=== PATIENT | female | born 1960 | race Two or more races ===

== ENCOUNTER → 2016-12-21 | Outpatient (CLI) | payer OTHER ==
--- NOTE | 2016-12-21 11:08 | US ---
EXAMINATION TYPE: US pelvic complete DATE OF EXAM: 12/21/2016 COMPARISON: NONE CLINICAL HISTORY: 56-year-old female Z01.419 Screen for gynecologic exam. Patient stated has painful intercourse and that vaginal speculum insertion was also too painful for gynecological exam; hysterec kyra and right oophorectomy in 1985. TECHNIQUE: Transabdominal (TA) and Transvaginal (TV) to better assess remaining ovary; Date of LMP: approximately 30 years ago FINDINGS: Uterus and right ovary are surgically absent. Left Ovary: 1.2 x 1.0 x 0.9 cm, within normal limits. No evident adnexal abnormality or cul-de-sac free fluid. CONTROL SYSTEM COMPUTER SCIENTIST NOTES: Patient was able to insert transvaginal US probe and able to tolerate exam. IMPRESSION: 1. Status post hysterectomy and right oophorectomy. 2. Normal appearance to the left ovary.
--- NOTE | 2016-12-21 13:39 | US ---
EXAMINATION TYPE: US thyroid st tissue head/neck DATE OF EXAM: 12/21/2016 COMPARISON: NONE CLINICAL HISTORY: 56-year-old female E03.9 hypothyroidism. Palpable noted by patient midline under ch in which enlarges occasionally and white discharge occurs. GLAND SIZE: Right Lobe: 3.2 x 1.0 x 1.0 cm Overall Parenchyma: homogenous Left Lobe: 3.4 x 1.1 x 1.0 cm Overall Parenchyma: homogeneous Isthmus Thickness: 0.2 cm NODULES RIGHT: # of nodules measured on right: 0 LEFT: # of nodules measured on left: 0 ISTHMUS: # of nodules measured in the isthmus: 0 Bilateral neck scanned: couple of lymph nodes are imaged at bilateral superomedial neck measuring up to 1.1 cm short axis. These may be reactive and are not abnormally enlarged by size criteria. Drier Attendant notes: At patient's c/o midline palpable is superficial cyst = 0.3 x 0.2 x 0.1cm. This is very small and located at the junction of the subcutaneous fat and strap musculature/platysma . There is some focal thickening of the overlying subcutaneous tissues. IMPRESSION: 1. Slightly small thyroid gland but otherwise unremarkable in appearance. 2. Some prominent but nonenlarged cervical lymph nodes are probably reactive/post inflammatory. 3. At the palpable site of patient's complaint along the upper midline, there appears to be a tiny 3 mm cyst and adjacent thickening of the subcutaneous fat. Correlate for a cutaneous lesion such as a sebaceous or epidermal inclusion cyst.
--- NOTE | 2017-01-01 10:39 | MM ---
Reason for exam: screening (asymptomatic). Last mammogram was performed 6 years and 11 months ago. History: Family history of breast cancer in mother, breast cancer in maternal grandmother, breast cancer in maternal aunt, and breast cancer in maternal cousin. Physical Findings: A clinical breast exam by your physician is recommended on an annual basis and results should be correlated with mammographic findings. MG Screening Mammo w CAD Bilateral CC and MLO view(s) were taken. XCCL view(s) were taken of the left breast. Prior study comparison: January 28, 2010, mammogram, performed at [facility]. Two focal asymmetries right upper outer quadrant middle depth. ASSESSMENT: Incomplete: need additional imaging evaluation, BI-RAD 0 RECOMMENDATION: Special view mammogram of the right breast. If lesion persists on supplemental views, image directed ultrasound is recommended. [facility] will attempt to contact patient to return for supplemental views and ultrasound if indicated.
== END | disposition home or self-care (01) ==
LOC: RADUSWWP 09:19
PROVIDERS: ATTEND Family Medicine
DX: Z12.31 Encounter for screening mammogram for malignant neoplasm of breast (principal); R10.2 Pelvic and perineal pain; N94.10 Unspecified dyspareunia; E03.9 Hypothyroidism, unspecified; Z90.710 Acquired absence of both cervix and uterus; Z90.722 Acquired absence of ovaries, bilateral
CPT/HCPCS: 76856; 76536; G0202

== ENCOUNTER → 2017-01-04 | Outpatient (CLI) | payer OTHER ==
--- NOTE | 2017-01-04 14:30 | MM ---
Reason for exam: additional evaluation requested from abnormal screening. Last mammogram was performed less than 1 month ago. History: Family history of breast cancer in mother, breast cancer in maternal grandmother, breast cancer in maternal aunt, and breast cancer in maternal cousin. Physical Findings: Nurse did not find any significant physical abnormalities on exam. MG Work Up Mamm w CAD RT ML, spot compression CC, and spot compression MLO view(s) were taken of the right breast. Prior study comparison: December 26, 2016, mammogram. December 21, 2016, bilateral MG screening mammo w CAD. There is no discrete abnormality in the upper outer quadrant of the right breast. No significant new findings when compared with previous films. These results were verbally communicated with the patient and result sheet given to the patient on 01/04/17. ASSESSMENT: Benign, BI-RAD 2 RECOMMENDATION: Return to routine screening mammogram schedule for both breasts.
== END ==
LOC: RADMAMWWP 13:31
PROVIDERS: ATTEND Family Medicine
DX: R92.8 Other abnormal and inconclusive findings on diagnostic imaging of breast (principal)

== ENCOUNTER 2017-05-07 10:05 | Day surgery (SDC) | payer OTHER ==
[2017-05-02 15:20] VITALS: BMI 19.1
[~2017-05-07 10:05] MED LIST: LACTATED RINGERS 1,000 ML IV SCH
[2017-05-07 10:38] VITALS: RESP 16; TEMP 98.8
[2017-05-07] MEDS ORDERED: LIDOCAINE 1% 20 ML VIAL (10MG/ML) FOR IV START INTRADERMA ONE (10:40)
[2017-05-07] MEDS ORDERED: PROPOFOL 10 MG/ML 20 ML VIAL IV ONE (10:57)
[2017-05-07] MEDS ORDERED: MIDAZOLAM 2 MG/2 ML VIAL ONE (10:57)
--- NOTE | 2017-05-07 11:22 | P.PCN ---
Date of Procedure: 05/07/17 Procedure(s) Performed: Procedure: Total colonoscopy. Preoperative diagnosis: Screening for neoplasia. Postoperative diagnosis: Exam within normal limits. Preparation: HalfLytely prep. Sedation: Was provided by anesthesia. Brief clinical history: The patient is a 57-year-old female who is scheduled for this evaluation for screening for neoplasia. She has no abdominal complaints, bleeding or anemia. No FH of colon cancer. This would be her first colonoscopy. Procedure: With the patient on her left lateral decubitus position and after informed consent and adequate sedation, the perianal area was inspected and it did not show any fissures or fistulas. There were no masses felt on digital rectal examination. The Olympus CFQ 160L video colonoscope was then inserted in the rectum in the usual fashion and advanced to the cecum. The mucosa appeared healthy. No polyps or tumors were seen or any obvious diverticular disease or other pathology. I retroflexed the endoscope in the rectum before the endoscope was withdrawn. The patient tolerated the procedure well. Plan: The patient was reassured. She will follow-up with you as planned and I recommended repeat exam in 10 years.
[2017-05-07 11:47] VITALS: BP 150/85; PULSE 88
== END 2017-05-07 12:13 | disposition home or self-care (01) ==
LOC: ORWHC2ENDO 10:05
DX: Z12.11 Encounter for screening for malignant neoplasm of colon (principal); I10 Essential (primary) hypertension; M19.90 Unspecified osteoarthritis, unspecified site; Z88.5 Allergy status to narcotic agent; Z88.1 Allergy status to other antibiotic agents; Z91.041 Radiographic dye allergy status; Z79.82 Long term (current) use of aspirin; Z79.891 Long term (current) use of opiate analgesic; Z79.899 Other long term (current) drug therapy
CPT/HCPCS: J2250; J2704; G0121

== ENCOUNTER → 2017-06-12 | Outpatient (CLI) | payer OTHER ==
[2017-06-12 17:57] LABS: Total Protein,CSF 35 mg/dL (12-60)
[2017-06-12 20:18] LABS: Appearance,CSF Clear; CSF Tube Number 4; Nucleated Cells, CSF 1 u/L (0-5); Red Blood Cell,CSF 0 u/L (0-10)
[2017-06-13 11:56] LABS: IgG - CSF 1.4 mg/dL (0.0 - 3.4); IgG/Albumin Index (CSF) 0.44 (0.00 - 0.77); Immunoglobulin G 840 mg/dL (700 - 1600)
== END | disposition home or self-care (01) ==
LOC: LABWHC1 08:56
PROVIDERS: ATTEND Nurse Practitioner Acute Care
DX: R90.82 White matter disease, unspecified (principal); R53.1 Weakness; R53.83 Other fatigue
CPT/HCPCS: 36415; 82040; 82042; 82784; 83873; 83916; 84157; 87476; 88108; 89050

== ENCOUNTER → 2017-10-12 | Outpatient (CLI) | payer OTHER ==
[2017-10-12 12:15] LABS: Basophils % (A) 0 %; Eosinophils # (A) 0.3 k/uL (0-0.7); Eosinophils % (A) 4 %; HCT 42.8 % (34.0-46.0); HGB 13.8 gm/dL (11.4-16.0); Lymphocytes % (A) 27 %; MCH 30.3 pg (25.0-35.0); MCHC 32.2 g/dL (31.0-37.0); Mean Platelet Volume 6.8; Monocytes # (A) 0.4 k/uL (0-1.0); Monocytes % (A) 6 %; Neutrophils # (A) 4.7 k/uL (1.3-7.7); Neutrophils % (A) 61 %; Platelet Count 235 k/uL (150-450); RBC 4.56 m/uL (3.80-5.40); RDW 12.7 % (11.5-15.5); WBC 7.7 k/uL (3.8-10.6)
[2017-10-12 12:29] LABS: ALT 28 U/L (9-52); AST 22 U/L (14-36); Albumin 4.5 g/dL (3.5-5.0); Alkaline Phosphatase 61 U/L (38-126); Anion Gap 8 mmol/L; Blood Urea Nitrogen 14 mg/dL (7-17); Calcium 9.8 mg/dL (8.4-10.2); Carbon Dioxide 30 mmol/L (22-30); Chloride 102 mmol/L (98-107); Glucose 89 mg/dL (74-99); Potassium 4.3 mmol/L (3.5-5.1); Sodium 140 mmol/L (137-145); Total Bilirubin 0.6 mg/dL (0.2-1.3)
== END | disposition home or self-care (01) ==
LOC: LABWHC1 11:42
PROVIDERS: ATTEND Nurse Practitioner Acute Care
DX: G35 Multiple sclerosis (principal); E55.9 Vitamin D deficiency, unspecified; Z51.81 Encounter for therapeutic drug level monitoring
CPT/HCPCS: 36415; 80053; 82306; 85025

== ENCOUNTER → 2017-11-01 | Outpatient (CLI) | payer OTHER ==
--- NOTE | 2017-11-01 15:39 | MR ---
EXAMINATION TYPE: MR brain wo/w con DATE OF EXAM: 11/01/2017 COMPARISON: 01/18/2017 HISTORY: Multiple sclerosis TECHNIQUE: Multiplanar, multisequence images of the brain and brainstem is performed without and with utilizing 5.5 mL intravenous Gadavist gadolinium contrast. Demyelinating disease protocol with additional Sagi ttal Flair sequence performed. FINDINGS: T2 Lesions Present : Yes Approximate Number of Lesions: Approximately 18 within the left hemisphere and approximately 21 on th e right Locations Identified : Pericallosal, periventricular, and juxtacortical Size of Reference Lesion(s): 1. 0.4 cm x 0.9 cm x 1.2 cm on axial image 17 and sagittal image 10, this is overall unchanged from the prior. 2 r 0.5 cm x 0.4 cm x 0.4 cm on axial image 21 and sagittal image 27 , this is also overall unchang ed from the prior. Enhancing Lesion(s) Present: No Change from Prior: Stable Diffusion weighted images demonstrate no evidence of a recent infarct or other diffusion abnormality. There is no worrisome extra-axial fluid collection. The ventricular system and cisternal spaces ar e normal in size and appearance. The brain volume is age appropriate. Midline structures demonstrate normal morphology. 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 The craniocervical junction appears within normal limits. Post con trast images demonstrate no abnormal enhancement. The dural venous sinuses appear patent. The visual ized sinuses are clear other than very scant mucosal thickening in the ethmoid and maxillary sinuses and the globes are intact. IMPRESSION: Stable moderate burden white matter plaques in keeping with the patient's history of multiple scleros is with no evidence of enhancing lesions to suggest acute demyelination.
== END | disposition home or self-care (01) ==
LOC: RADMRIMAIN 10:09
PROVIDERS: ATTEND Nurse Practitioner Acute Care
DX: R90.82 White matter disease, unspecified (principal); Z86.69 Personal history of other diseases of the nervous system and sense organs; Z88.1 Allergy status to other antibiotic agents; Z91.041 Radiographic dye allergy status
CPT/HCPCS: 70553; A9581

== ENCOUNTER 2017-11-07 18:34 | Emergency (ER) | payer OTHER ==
[2017-11-07] MEDS ORDERED: SODIUM CHLORIDE 0.9% 1,000 ML IV STA (19:58)
[2017-11-07] MEDS ORDERED: LORazepam 2 MG/ML INJ IV STA (19:58)
--- NOTE | 2017-11-07 20:07 | ED ---
General Adult HPI - General Chief complaint: Recheck/Abnormal Lab/Rx Stated complaint: Slurred Speech Time Seen by Provider: 11/07/17 19:50 Source: patient, RN notes reviewed, old records reviewed Mode of arrival: ambulatory Limitations: no limitations - History of Present Illness Initial comments: Patient's a 57-year-old female with significant past medical history for MS, presents emergency room today with a chief complaint of slurred speech over the last 3 weeks. She states that she has been following up with her neurologist. They state that she's had some symptoms are consistent with MS exacerbation but the slurred speech is new. She states she was advised by the neurologist to come here to the emergency room to rule out a stroke. She doesn't that she had an MRI approximately a week ago was not told of the results. Patient denies any other complaints or symptoms. She denies any new symptoms states all the symptoms have been present over the last 3 weeks. Patient denies any recent fever, chills, shortness of breath, chest pain, back pain, abdominal pain, nausea or vomiting, numbness or tingling, visual changes, or any other complaints. - Related Data Home Medications Medication Instructions Recorded Confirmed Hydrochlorothiazide 25 mg PO DAILY 05/02/17 11/07/17 Ascorbic Acid [Vitamin C] 1,000 mg PO DAILY 11/07/17 11/07/17 Cholecalciferol (Vitamin D3) 4,000 unit PO DAILY 11/07/17 11/07/17 [Vitamin D3] L.acidoph,Paracasei, B.lactis 1 cap PO DAILY 11/07/17 11/07/17 [Probiotic] Pravastatin Sodium [Pravachol] 20 mg PO HS 11/07/17 11/07/17 Pregabalin [Lyrica] 75 mg PO BID 11/07/17 11/07/17 Verapamil HCl [Calan] 120 mg PO DAILY 11/07/17 11/07/17 buPROPion SR [Wellbutrin Sr] 100 mg PO BID 11/07/17 11/07/17 Allergies Allergy/AdvReac Type Severity Reaction Status Date / Time Iodinated Contrast- Oral and Allergy Severe Anaphylaxis Verified 11/07/17 20:11 IV Dye vancomycin Allergy Severe HIVES Verified 11/07/17 20:11 cefaclor [From Ceclor] Allergy Unknown HIVES Verified 11/07/17 20:11 morphine AdvReac Unknown MADE Verified 11/07/17 20:11 MIGRAINE WORSE. gentamicin AdvReac Unknown Verified 11/07/17 20:11 Review of Systems ROS Statement: Those systems with pertinent positive or pertinent negative responses have been documented in the HPI. ROS Other: All systems not noted in ROS Statement are negative. Past Medical History Past Medical History: Hypertension, Osteoarthritis (OA) Additional Past Medical History / Comment(s): SEVERE MIGRAINES- HAS MIGRAINE PIERCING IN EAR THAT HELPS., ARTHRISTIS KNEES, STATES RECENT CT SCAN SHOWS BRAIN LESIONS., RASH ON BELLY. History of Any Multi-Drug Resistant Organisms: None Reported Past Surgical History: Appendectomy, Breast Surgery, Cholecystectomy, Hysterectomy, Orthopedic Surgery Additional Past Surgical History / Comment(s): BREAST SURGERY X3 (BX & LUMPECTOMY), LEFT SHOULDER SURGERY. Past Anesthesia/Blood Transfusion Reactions: Previous Problems w/ Anesthesia Additional Past Anesthesia/Blood Transfusion Reaction / Comment(s): MIGRAINES. SON HAS DIFFICULTY WAKING UP. Past Psychological History: Anxiety, Panic Disorder Smoking Status: Current every day smoker Past Alcohol Use History: Occasional Past Drug Use History: None Reported - Past Family History Mother Family Medical History: Cancer Additional Family Medical History / Comment(s): BREAST CANCER, CANCER IN GLAND UNDER JAW AND FACE. General Exam - General Exam Comments Initial Comments: General: The patient is awake and alert, in no distress, and does not appear acutely ill. Eye: Pupils are equal, round and reactive to light, extra-ocular movements are intact. No nystagmus. There is normal conjunctiva bilaterally. No signs of icterus. Ears, nose, mouth and throat: There are moist mucous membranes and no oral lesions. Neck: The neck is supple, there is no tenderness or JVD. Cardiovascular: There is a regular rate and rhythm. No murmur, rub or gallop is appreciated. Respiratory: Lungs are clear to auscultation, respirations are non-labored, breath sounds are equal. No wheezes, stridor, rales, or rhonchi. Gastrointestinal: Soft, non-distended, non-tender abdomen without masses or organomegaly noted. There is no rebound or guarding present. No CVA tenderness. Bowel sounds are unremarkable. Musculoskeletal: Normal ROM, no tenderness. Strength 5/5. Sensation intact. Radial pulses equal bilaterally 2+. Neurological: A&O x 3. CN II-XII intact, patient does have stuttering speech. Coordination appears grossly intact. Skin: Skin is warm and dry and no rashes or lesions are noted. Psychiatric: Cooperative, appropriate mood & affect, normal judgment. Limitations: no limitations Course Vital Signs 11/07/17 18:41 Temperature 98.2 F Pulse Rate 99 Respiratory 20 Rate Blood Pressure 155/80 O2 Sat by Pulse 98 Oximetry Medical Decision Making - Medical Decision Making Patient has been seen here the emergency room for rule out of a stroke. Patient 's CT is negative. She admits the symptoms been present for 3 weeks. Was following up with her neurologist advised come here to the emergency room before she could be started on a regimen for her MS. Patient's CT is negative for any acute abnormality. Patient also had MRI approximately one week ago which was reviewed. Patient's labs unremarkable. Patient omits no new symptoms today. Will be discharged home. - Lab Data Result diagrams: 11/07/17 20:30 11/07/17 20:30 Lab Results 11/07/17 11/07/17 11/07/17 Range/Units 20:30 20:30 20:30 WBC 9.1 (3.8-10.6) k/uL RBC 4.61 (3.80-5.40) m/uL Hgb 14.2 (11.4-16.0) gm/dL Hct 42.6 (34.0-46.0) % MCV 92.4 (80.0-100.0) fL MCH 30.9 (25.0-35.0) pg MCHC 33.4 (31.0-37.0) g/dL RDW 12.5 (11.5-15.5) % Plt Count 254 (150-450) k/uL Neutrophils % 63 % Lymphocytes % 25 % Monocytes % 7 % Eosinophils % 4 % Basophils % 1 % Neutrophils # 5.7 (1.3-7.7) k/uL Lymphocytes # 2.3 (1.0-4.8) k/uL Monocytes # 0.6 (0-1.0) k/uL Eosinophils # 0.4 (0-0.7) k/uL Basophils # 0.1 (0-0.2) k/uL Sodium 139 (137-145) mmol/L Potassium 3.8 (3.5-5.1) mmol/L Chloride 102 (98-107) mmol/L Carbon Dioxide 26 (22-30) mmol/L Anion Gap 11 mmol/L BUN 18 H (7-17) mg/dL Creatinine 0.70 (0.52-1.04) mg/dL Est GFR (CKD-EPI)AfAm >90 (>60 ml/min/1.73 sqM) Est GFR (CKD-EPI)NonAf >90 (>60 ml/min/1.73 sqM) Glucose 155 H (74-99) mg/dL Calcium 9.6 (8.4-10.2) mg/dL Total Bilirubin 0.3 (0.2-1.3) mg/dL AST 20 (14-36) U/L ALT 26 (9-52) U/L Alkaline Phosphatase 57 (38-126) U/L Total Protein 7.0 (6.3-8.2) g/dL Albumin 4.5 (3.5-5.0) g/dL Urine Color Colorless Urine Appearance Clear (Clear) Urine pH 5.0 (5.0-8.0) Ur Specific [place] 1.004 (1.001-1.035) Urine Protein Negative (Negative) Urine Glucose (UA) Negative (Negative) Urine Ketones Negative (Negative) Urine Blood Negative (Negative) Urine Nitrite Negative (Negative) Urine Bilirubin Negative (Negative) Urine Urobilinogen <2.0 (<2.0) mg/dL Ur Leukocyte Esterase Negative (Negative) Disposition Clinical Impression: Multiple sclerosis, Speech abnormality Disposition: HOME SELF-CARE Condition: Stable Instructions: Autoimmune Disease (ED) Additional Instructions: Please follow-up with neurologist over the next 1-2 days. Return here to the emergency room for any other concerns. Is patient prescribed a controlled substance at d/c from ED?: No Referrals: Carol De Luna MD [Primary Care Provider] - 1-2 days Jacqueline Natarajan MD [Family Provider] - 1-2 days Time of Disposition: 21:38
[2017-11-07] MEDS ORDERED: diphenhydrAMINE 50 MG/ML 1 ML VIAL IVP STA (20:22)
[2017-11-07] MEDS ORDERED: DIAZEPAM 5 MG TAB PO STA (20:22)
[2017-11-07 20:44] LABS: Appearance,Urine Clear (Clear); Basophils # (A) 0.1 k/uL (0-0.2); Basophils % (A) 1 %; Bilirubin,Urine Negative (Negative); Blood,Urine Negative (Negative); Color,Urine Colorless; Eosinophils # (A) 0.4 k/uL (0-0.7); Eosinophils % (A) 4 %; Glucose,Urine (UA) Negative (Negative); HCT 42.6 % (34.0-46.0); HGB 14.2 gm/dL (11.4-16.0); Ketones,Urine Negative (Negative); Leukocyte Esterase,Urine Negative (Negative); Lymphocytes # (A) 2.3 k/uL (1.0-4.8); Lymphocytes % (A) 25 %; MCH 30.9 pg (25.0-35.0); MCHC 33.4 g/dL (31.0-37.0); MCV 92.4 fL (80.0-100.0); Monocytes # (A) 0.6 k/uL (0-1.0); Monocytes % (A) 7 %; Neutrophils # (A) 5.7 k/uL (1.3-7.7); Neutrophils % (A) 63 %; Nitrite,Urine Negative (Negative); Platelet Count 254 k/uL (150-450); Protein,Urine Negative (Negative); RBC 4.61 m/uL (3.80-5.40); RDW 12.5 % (11.5-15.5); Specific Gravity,Urine 1.004 (1.001-1.035); Urobilinogen,Urine <2.0 mg/dL (<2.0); WBC 9.1 k/uL (3.8-10.6)
[2017-11-07 20:54] LABS: ALT 26 U/L (9-52); AST 20 U/L (14-36); Albumin 4.5 g/dL (3.5-5.0); Alkaline Phosphatase 57 U/L (38-126); Anion Gap 11 mmol/L; Blood Urea Nitrogen 18 mg/dL (7-17); Calcium 9.6 mg/dL (8.4-10.2); Carbon Dioxide 26 mmol/L (22-30); Chloride 102 mmol/L (98-107); Glucose 155 mg/dL (74-99); Potassium 3.8 mmol/L (3.5-5.1); Sodium 139 mmol/L (137-145); Total Bilirubin 0.3 mg/dL (0.2-1.3)
--- NOTE | 2017-11-07 21:30 | CT ---
EXAMINATION: CT brain wo con DATE AND TIME: 11/07/2017 9:18 PM CLINICAL INDICATION: Pain Headache TECHNIQUE: Standard departmental protocol. 1090.4 COMPARISON: None. FINDINGS: The calvarium is intact. There is no intracranial hemorrhage. There is no intracranial mass or mass effect. No definite new intra-axial or extra-axial attenuation defect. The paranasal sinuses, middle ear cavities, and mastoid sinus air cells are clear. The orbits are unremarkable. IMPRESSION: NO ACUTE PROCESS.
[2017-11-07 22:14] VITALS: BP 104/56; PULSE 78; RESP 18; TEMP 97.8
== END 2017-11-07 22:10 | disposition home or self-care (01) ==
LOC: EC 18:34
DX: G35 Multiple sclerosis (principal); R47.89 Other speech disturbances; I10 Essential (primary) hypertension; F17.200 Nicotine dependence, unspecified, uncomplicated; Z79.899 Other long term (current) drug therapy; Z88.1 Allergy status to other antibiotic agents; Z88.5 Allergy status to narcotic agent; Z91.041 Radiographic dye allergy status; Z86.69 Personal history of other diseases of the nervous system and sense organs; Z53.20 Procedure and treatment not carried out because of patient's decision for unspecified reasons
CPT/HCPCS: 36415; 80053; 85025; 81003; 70450; 99285; 96374; 96361; J1200

== ENCOUNTER → 2018-05-09 | Outpatient (CLI) | payer OTHER ==
--- NOTE | 2018-05-12 06:30 | MR ---
EXAMINATION TYPE: MR brain/cspine wo/w DATE OF EXAM: 05/09/2018 COMPARISON: 11/01/2017 HISTORY: 58-year-old female MS, cervicalgia TECHNIQUE: Multiplanar, multisequence images of the brain and brainstem is performed without and with IV contras t, utilizing 5.5 mL intravenous Gadavist gadolinium contrast is administered intravenously. Demyelin ating disease protocol with additional Sagittal Flair sequence performed. Subsequent multiplanar, multisequence imaging of the cervical spine without and with contrast. Demyel inating disease protocol was utilized with the addition of a sagittal PD sequence. FINDINGS: BRAIN: T2 Lesions Present : Yes Approximate Number of Lesions: 21 in the right cerebral hemisphere and 18 in the left cerebral hemisp here Locations Identified : Pericallosal, Periventricular, juxtacortical Size of Reference Lesion(s): 1. 6 x 5 mm in the subcortical right frontoparietal junction, axial image 21, not significant change d allowing for differences in measurement technique. 2 1.1 x 0.5 cm in the left periatrial white matter, not significant changed allowing for difference s in measurement technique. Enhancing Lesion(s) Present: No T1 Hypointense Lesion(s) Present: Yes Change from Prior: Stable Diffusion weighted images demonstrate no evidence of a recent infarct or other diffusion abnormality. There is no worrisome extra-axial fluid collection. The ventricular system and cisternal spaces ar e normal in size and appearance. The brain volume is age appropriate. Midline structures demonstrate normal morphology. The craniocervical junction appears within normal limits. Post contrast images demonstrate no abnormal enhancement. The dural venous sinuses appear pa tent. The visualized sinuses are clear and the globes are intact. CERVICAL SPINE: No craniocervical junction abnormality, predental space widening, or prevertebral soft tissue swellin g. There is trace grade 1 retrolisthesis at C5-C6. Mild to moderate degenerative disc disease especially from C3 through C6 levels with disc desiccation, mild disc height loss, and discussed by yenny sidhu, largest at C5-C6. Scattered ligamentum flavum thickening is also present as well as facet and uncovertebral joint degen erative change. No suspicious bone marrow replacement. At C2-C3, mild facet degenerative change without significant canal or foraminal stenosis. At C3-C4, broad-based posterior disc costophrenic complex with right-sided uncovertebral joint arthro mel and bilateral facet degenerative change. There is mild overall narrowing of the spinal canal an d mild right neuroforaminal stenosis. At C4-C5, broad-based discussed by complex with right uncovertebral joint arthropathy and bilateral f acet degenerative change. There is mild overall narrowing of spinal canal with mild right neuroforami nal stenosis. At C5-C6, broad-based disc osteophyte complex with ligamentum flavum thickening and facet/uncovertebr al joint degenerative change. There is abutment of both the dorsal and ventral cord with slight cord flattening. There is a moderate spinal canal stenosis and [id number] bilateral neuroforaminal s tenosis. At C6-C7, mild broad-based posterior discussed by complex with mild uncovertebral joint arthropathy. Additional facet degenerative change. Changes result in mild narrowing of the spinal canal without si gnificant neuroforaminal stenosis. At C7-T1, there is facet degenerative change without significant canal or foraminal stenosis. Normal course of the cervical cord and normal cord signal. Some artifacts project over the cord. Whil e the canal is tight and C5-C6 and there is slight flattening of the cord both dorsally and ventrally , no T2-weighted cord signal abnormality is seen. No abnormal enhancement within the spinal canal. COMBINED IMPRESSION: BRAIN: Unchanged moderate scattered burden of T2 bright white matter change in keeping with patient's histor y of MS. No enhancing plaques. CERVICAL SPINE: 1. Mild to moderate degenerative disc disease particularly from C3 through C6 levels along with facet /uncovertebral joint arthropathy and scattered ligamentum flavum thickening. 2. Trace grade 1 retrolisthesis at C5-C6. 3. Changes result in overall moderate narrowing of the spinal canal at C5-C6 with abutment of both th e dorsal and ventral cord and slight cord flattening. Additional levels of mild narrowing of the spin al canal without any significant cord contact. 4. No demyelinating plaques or cord edema identified. 5. Variable mild to moderate neural foraminal stenoses as outlined above.
== END | disposition home or self-care (01) ==
LOC: RADMRIMAIN 11:41
PROVIDERS: ATTEND Psychiatry & Neurology Neurology
DX: M48.02 Spinal stenosis, cervical region (principal); M50.31 Other cervical disc degeneration, high cervical region; M46.92 Unspecified inflammatory spondylopathy, cervical region; M24.28 Disorder of ligament, vertebrae; M43.12 Spondylolisthesis, cervical region; G35 Multiple sclerosis; R90.89 Other abnormal findings on diagnostic imaging of central nervous system; Z91.041 Radiographic dye allergy status; Z88.8 Allergy status to other drugs, medicaments and biological substances
CPT/HCPCS: 70553; 72156; A9585

== ENCOUNTER 2018-05-14 20:30 | Emergency (ER) | payer OTHER ==
[2018-05-14] MEDS ORDERED: SODIUM CHLORIDE 0.9% 1,000 ML IV STA (21:20)
[2018-05-14] MEDS ORDERED: MORPHINE SULFATE 4 MG/ML SYRINGE IV STA (21:20)
--- NOTE | 2018-05-14 21:30 | ED ---
General Adult HPI - General Chief complaint: Abdominal Pain Stated complaint: Abd pain Time Seen by Provider: 05/14/18 21:20 Source: patient Mode of arrival: ambulatory Limitations: no limitations - History of Present Illness Initial comments: Sweetie is a 58-year-old female with history of MS who presents the emergency department today for evaluation of epigastric and retrosternal discomfort which began around 6 PM. Pain has progressively worsened throughout the evening. Pain is not associated with nausea or vomiting. Pain radiates from the epigastrium to the back and around both flanks. She reports this pain is similar to but more severe than and more central location and previous kidney stones. Pain began before eating was not associated with postprandial episode. Patient reports she's had her gallbladder out she has no history of pancreatitis she reports that she has one drink of scotch every other Sunday she has not had any other drinks in the past week. - Related Data Home Medications Medication Instructions Recorded Confirmed Hydrochlorothiazide 25 mg PO DAILY 05/02/17 05/14/18 Cholecalciferol (Vitamin D3) 4,000 unit PO DAILY 11/07/17 05/14/18 [Vitamin D3] L.acidoph,Paracasei, B.lactis 1 cap PO DAILY 11/07/17 05/14/18 [Probiotic] Pregabalin [Lyrica] 75 mg PO BID 11/07/17 05/14/18 Verapamil HCl [Calan] 120 mg PO DAILY 11/07/17 05/14/18 buPROPion SR [Wellbutrin Sr] 100 mg PO BID 11/07/17 05/14/18 Ascorbic Acid [Vitamin C] 500 mg PO BID 05/14/18 05/14/18 Butalb/APAP/Caff 50-325-40Mg 1 tab PO Q4H PRN 05/14/18 05/14/18 [Fioricet 50-325-40] Glatiramer Acetate 40 mg SQ TUTHSA 05/14/18 05/14/18 Modafinil [Provigil] 100 mg PO WEFR PRN 05/14/18 05/14/18 [place]-3 Fatty Acids/Fish Oil [Fish 1 cap PO DAILY 05/14/18 05/14/18 Oil 1,000 mg Softgel] Pravastatin Sodium [Pravachol] 40 mg PO HS 05/14/18 05/14/18 Previous Rx's Medication Instructions Recorded Pantoprazole Sodium [Protonix] 20 mg PO BID #30 tablet. 05/15/18 Sucralfate [Carafate] 1 gm PO ACHS #1 bottle 05/15/18 Allergies Allergy/AdvReac Type Severity Reaction Status Date / Time gentamicin Allergy Severe Anaphylaxis Verified 05/14/18 21:42 Iodinated Contrast- Oral and Allergy Severe Anaphylaxis Verified 05/14/18 21:42 IV Dye vancomycin Allergy Severe HIVES Verified 05/14/18 21:42 cefaclor [From Ceclor] Allergy Unknown HIVES Verified 05/14/18 21:42 morphine AdvReac Unknown MADE Verified 05/14/18 21:42 MIGRAINE WORSE. Review of Systems ROS Statement: Those systems with pertinent positive or pertinent negative responses have been documented in the HPI. ROS Other: All systems not noted in ROS Statement are negative. Past Medical History Past Medical History: Hypertension, Osteoarthritis (OA) Additional Past Medical History / Comment(s): SEVERE MIGRAINES- HAS MIGRAINE PIERCING IN EAR THAT HELPS., ARTHRISTIS KNEES, STATES RECENT CT SCAN SHOWS BRAIN LESIONS., RASH ON BELLY. History of Any Multi-Drug Resistant Organisms: None Reported Past Surgical History: Appendectomy, Breast Surgery, Cholecystectomy, Hysterectomy, Orthopedic Surgery Additional Past Surgical History / Comment(s): BREAST SURGERY X3 (BX & LUMPECTOMY), LEFT SHOULDER SURGERY. Past Anesthesia/Blood Transfusion Reactions: Previous Problems w/ Anesthesia Additional Past Anesthesia/Blood Transfusion Reaction / Comment(s): MIGRAINES. SON HAS DIFFICULTY WAKING UP. Past Psychological History: Anxiety, Panic Disorder Smoking Status: Current every day smoker Past Alcohol Use History: Occasional Past Drug Use History: None Reported - Past Family History Mother Family Medical History: Cancer Additional Family Medical History / Comment(s): BREAST CANCER, CANCER IN GLAND UNDER JAW AND FACE. General Exam - General Exam Comments Initial Comments: Physical Exam GENERAL: Appears uncomfortable HENT: Normocephalic, Atraumatic. EYES: PERRL, EOMI PULMONARY: Tachypnea CARDIOVASCULAR: Tachycardia, regular Pulses present and equal in bilateral radial pulses, bilateral DP/PT pulses ABDOMEN: Soft and nontender with normal bowel sounds. No hepatosplenomegaly, no pulsatile masses SKIN: Skin is clear with no lesions or rashes and otherwise unremarkable. : Deferred NEUROLOGIC: Patient is alert and oriented x3. Moving all extremities spontaneously MUSCULOSKELETAL: Normal extremities with adequate strength and full range of motion. No lower extremity swelling or edema. No calf tenderness. PSYCHIATRIC: Normal psychiatric evaluation. Limitations: no limitations Limitations: no limitations Course Vital Signs 05/14/18 05/14/18 05/15/18 20:45 22:58 00:58 Temperature 98.4 F 98.7 F Pulse Rate 127 H 106 H 100 Respiratory 40 H 21 18 Rate Blood Pressure 199/110 140/78 140/69 O2 Sat by Pulse 98 98 98 Oximetry EKG Findings - EKG Comments: EKG Findings:: EKG obtained at 2114, rate is 125, rhythm is sinus tachycardia, there is normal axis, normal intervals, AK 150, cure 70, QTC is [address] elevations or depressions is no evidence of acute ischemia or infarction. Medical Decision Making - Medical Decision Making The patient was seen and evaluated history was obtained from patient and signed patient presenting with severe epigastric abdominal pain not associated with eating Labs and imaging were ordered, morphine was ordered Bedside ultrasound was performed, there are no significant abnormalities were noted, aorta appeared normal in size and contour KUB and chest x-ray revealed no free air I offered to order the patient is computed tomography scan however she states that she has severe anxiety and claustrophobia and cannot have a computed tomography scan Patient was reevaluated after IV morphine she reported significant improvement in her discomfort though she was still having mild discomfort in the epigastrium , GI cocktail was ordered Patient was advised of normal lab and x-ray findings Patient reported mild improvement with GI cocktail however reports continued pain requesting more opiates, I advised the patient at this time I would require a computed tomography scan to evaluate for any further pathology prior to giving further pain medications. Patient agreeable CT scanning only if she gets anxiolysis prior to computed tomography scan. By mouth Valium was ordered which patient tolerated well. Patient reports she has anaphylaxis to IV contrast and not willing even with premedication to receive IV contrast so dry scan was performed. Computed tomography scan revealed nonobstructive renal stones, no other acute findings were identified Results were discussed with the patient, at this time I have a history suspicion the patient's discomfort is due to gastritis and advised her she needs to follow up with GI for further evaluation. Patient reports her father had a good relationship with Dr. Emery and she plans to follow up with him. Patient will be prescribed Carafate and Protonix. Patient agreeable to plan for discharge home with outpatient GI follow-up. Return parameters were discussed patient was discharged home. When the nurse went to discharge the patient patient asked for additional IV pain medication, I offered the patient repeat dose of GI cocktail however she declined and stated she would prefer to be discharged home. - Lab Data Result diagrams: 05/14/18 21:20 05/14/18 21:20 Lab Results 05/14/18 05/14/18 05/14/18 Range/Units 21:20 21:20 21:20 WBC 12.6 H (3.8-10.6) k/uL RBC 4.45 (3.80-5.40) m/uL Hgb 13.9 (11.4-16.0) gm/dL Hct 40.7 (34.0-46.0) % MCV 91.5 (80.0-100.0) fL MCH 31.2 (25.0-35.0) pg MCHC 34.1 (31.0-37.0) g/dL RDW 12.5 (11.5-15.5) % Plt Count 314 (150-450) k/uL Neutrophils % 83 % Lymphocytes % 12 % Monocytes % 3 % Eosinophils % 0 % Basophils % 1 % Neutrophils # 10.5 H (1.3-7.7) k/uL Lymphocytes # 1.6 (1.0-4.8) k/uL Monocytes # 0.4 (0-1.0) k/uL Eosinophils # 0.0 (0-0.7) k/uL Basophils # 0.1 (0-0.2) k/uL PT (9.0-12.0) sec INR (<1.2) APTT (22.0-30.0) sec Sodium 142 (137-145) mmol/L Potassium 4.4 (3.5-5.1) mmol/L Chloride 109 H (98-107) mmol/L Carbon Dioxide 23 (22-30) mmol/L Anion Gap 10 mmol/L BUN 22 H (7-17) mg/dL Creatinine 0.61 (0.52-1.04) mg/dL Est GFR (CKD-EPI)AfAm >90 (>60 ml/min/1.73 sqM) Est GFR (CKD-EPI)NonAf >90 (>60 ml/min/1.73 sqM) Glucose 159 H (74-99) mg/dL Calcium 10.0 (8.4-10.2) mg/dL Magnesium 2.1 (1.6-2.3) mg/dL Total Bilirubin 0.4 (0.2-1.3) mg/dL AST 26 (14-36) U/L ALT 28 (9-52) U/L Alkaline Phosphatase 79 (38-126) U/L Troponin I (0.000-0.034) ng/mL NT-Pro-B Natriuret Pep 32 pg/mL Total Protein 7.1 (6.3-8.2) g/dL Albumin 4.6 (3.5-5.0) g/dL Amylase 86 (30-110) U/L Lipase 105 (23-300) U/L 05/14/18 05/14/18 Range/Units 21:20 21:20 WBC (3.8-10.6) k/uL RBC (3.80-5.40) m/uL Hgb (11.4-16.0) gm/dL Hct (34.0-46.0) % MCV (80.0-100.0) fL MCH (25.0-35.0) pg MCHC (31.0-37.0) g/dL RDW (11.5-15.5) % Plt Count (150-450) k/uL Neutrophils % % Lymphocytes % % Monocytes % % Eosinophils % % Basophils % % Neutrophils # (1.3-7.7) k/uL Lymphocytes # (1.0-4.8) k/uL Monocytes # (0-1.0) k/uL Eosinophils # (0-0.7) k/uL Basophils # (0-0.2) k/uL PT 10.5 (9.0-12.0) sec INR 1.0 (<1.2) APTT 23.0 (22.0-30.0) sec Sodium (137-145) mmol/L Potassium (3.5-5.1) mmol/L Chloride (98-107) mmol/L Carbon Dioxide (22-30) mmol/L Anion Gap mmol/L BUN (7-17) mg/dL Creatinine (0.52-1.04) mg/dL Est GFR (CKD-EPI)AfAm (>60 ml/min/1.73 sqM) Est GFR (CKD-EPI)NonAf (>60 ml/min/1.73 sqM) Glucose (74-99) mg/dL Calcium (8.4-10.2) mg/dL Magnesium (1.6-2.3) mg/dL Total Bilirubin (0.2-1.3) mg/dL AST (14-36) U/L ALT (9-52) U/L Alkaline Phosphatase (38-126) U/L Troponin I <0.012 (0.000-0.034) ng/mL NT-Pro-B Natriuret Pep pg/mL Total Protein (6.3-8.2) g/dL Albumin (3.5-5.0) g/dL Amylase (30-110) U/L Lipase (23-300) U/L Disposition Clinical Impression: Abdominal pain Disposition: HOME SELF-CARE Condition: Stable Instructions (If sedation given, give patient instructions): Gastritis (ED), Abdominal Pain (ED) Prescriptions: Pantoprazole Sodium [Protonix] 20 mg PO BID #30 tablet. Sucralfate [Carafate] 1 gm PO ACHS #1 bottle Is patient prescribed a controlled substance at d/c from ED?: No Referrals: Carol De Luna MD [Primary Care Provider] - 1-2 days
[2018-05-14 21:45] LABS: Basophils # (A) 0.1 k/uL (0-0.2); Basophils % (A) 1 %; Eosinophils % (A) 0 %; HCT 40.7 % (34.0-46.0); HGB 13.9 gm/dL (11.4-16.0); Lymphocytes # (A) 1.6 k/uL (1.0-4.8); Lymphocytes % (A) 12 %; MCH 31.2 pg (25.0-35.0); MCHC 34.1 g/dL (31.0-37.0); MCV 91.5 fL (80.0-100.0); Mean Platelet Volume 6.9; Monocytes # (A) 0.4 k/uL (0-1.0); Monocytes % (A) 3 %; Neutrophils # (A) 10.5 k/uL (1.3-7.7); Neutrophils % (A) 83 %; Platelet Count 314 k/uL (150-450); RBC 4.45 m/uL (3.80-5.40); RDW 12.5 % (11.5-15.5); WBC 12.6 k/uL (3.8-10.6)
[2018-05-14 22:02] LABS: ALT 28 U/L (9-52); AST 26 U/L (14-36); Albumin 4.6 g/dL (3.5-5.0); Alkaline Phosphatase 79 U/L (38-126); Amylase 86 U/L (30-110); Anion Gap 10 mmol/L; Blood Urea Nitrogen 22 mg/dL (7-17); Carbon Dioxide 23 mmol/L (22-30); Chloride 109 mmol/L (98-107); Glucose 159 mg/dL (74-99); Lipase 105 U/L (23-300); Magnesium 2.1 mg/dL (1.6-2.3); Potassium 4.4 mmol/L (3.5-5.1); Sodium 142 mmol/L (137-145); Total Bilirubin 0.4 mg/dL (0.2-1.3); Total Protein 7.1 g/dL (6.3-8.2)
[2018-05-14 22:05] LABS: Prothrombin Time 10.5 sec (9.0-12.0)
--- NOTE | 2018-05-14 22:17 | XR ---
EXAM: XR Chest, 1 View CLINICAL HISTORY: ITS.REASON XR Reason: Pain TECHNIQUE: Frontal view of the chest. COMPARISON: None FINDINGS: Hardware: None. Lungs/pleura: Normal. No focal consolidation. No pleural effusion or pneumothorax. Heart/mediastinum: Normal. No cardiomegaly. Soft tissues: Unremarkable. Bones: No acute fracture. Upper abdomen: Cholecystectomy clips in the right upper quadrant. IMPRESSION: No acute disease identified.
--- NOTE | 2018-05-14 22:29 | XR ---
EXAM: XR Abdomen, 1 View CLINICAL HISTORY: ITS.REASON XR Reason: Pain TECHNIQUE: Frontal supine view of the abdomen/pelvis. COMPARISON: None FINDINGS: Hardware: None. Abdomen: Nonobstructive bowel gas pattern. No free air. Cholecystectomy clips in the right upper quadrant. Surgical clip in the left pelvis. Presumed phleboliths in the pelvis. Bones: Normal. Soft tissues: Normal. Lower chest: Normal. IMPRESSION: Nonobstructive bowel gas pattern. No free air.
[2018-05-14 22:59] VITALS: TEMP 98.7
[2018-05-14] MEDS ORDERED: MAG HYDROX/AL HYDROX/SIMETH 30 ML, HYOSCYAMINE ELIXIR 10 ML, CIMETIDINE HCL 300 MG, LID... PO STA ×4 (23:00)
[2018-05-15] MEDS ORDERED: DIAZEPAM 5 MG TAB PO STA (00:44)
[2018-05-15 00:59] VITALS: BP 140/69; PULSE 100; RESP 18
[2018-05-15] MEDS ORDERED: methylPREDNISolone SOD SUCCI 125 MG/2 ML VIAL IV STA (01:14)
[2018-05-15] MEDS ORDERED: diphenhydrAMINE 50 MG/ML 1 ML VIAL IVP STA (01:14)
--- NOTE | 2018-05-15 02:09 | CT ---
EXAM: CT Abdomen and Pelvis Without Intravenous Contrast CLINICAL HISTORY: ITS.REASON CT Reason: Pain TECHNIQUE: Axial computed tomography images of the abdomen and pelvis without intravenous contrast. CTDI is 5.7 mGy and DLP is 316.3 mGy-cm. This CT exam was performed using one or more of the following dose reduction techniques: automated exposure control, adjustment of the mA and/or kV according to patient size, and/or use of iterative reconstruction technique. COMPARISON: None FINDINGS: Evaluation of solid organs somewhat limited without IV contrast. Liver: No focal lesion. Spleen: No focal lesion. Gallbladder: Prior cholecystectomy. Pancreas: No acute inflammation. No mass. Adrenal glands: No mass. Kidneys: Punctate nonobstructing right renal stones and/or parenchymal calcifications. No hydronephrosis or ureteral stone. Bowel: Appendix is not visualized, but no CT evidence of acute appendicitis. No bowel obstruction or inflammation. Urinary bladder: Mild prominence of the bladder wall may be at least in part accentuated by underdistention. Reproductive organs: Prior hysterectomy. Muscles: No mass. Subcutaneous tissues: Mild fat stranding in the anterior abdominal wall and gluteal soft tissues may be related to injection changes. Peritoneal space: No free fluid. Phleboliths in the pelvis. Lymph nodes: Small mesenteric lymph nodes are nonspecific but may be reactive. Vessels: Atherosclerotic changes of the vasculature. No aneurysm. Bones: No acute fracture. Probable bone island in the L4 vertebral body. Lung bases: Trace pericardial fluid. IMPRESSION: 1. Punctate nonobstructive right renal stones and/or parenchymal calcifications. No hydronephrosis or ureteral stone. 2. Mild prominence of the bladder wall may be at least in part accentuated by underdistention. Please correlate with urinalysis if concerned for cystitis.
[2018-05-15] MEDS ORDERED: MAG HYDROX/AL HYDROX/SIMETH 30 ML, HYOSCYAMINE ELIXIR 10 ML, CIMETIDINE HCL 300 MG, LID... PO STA ×4 (03:45)
== END 2018-05-15 03:47 | disposition home or self-care (01) ==
LOC: EC 20:30
DX: N20.0 Calculus of kidney (principal); I10 Essential (primary) hypertension; G35 Multiple sclerosis; F41.9 Anxiety disorder, unspecified; F17.200 Nicotine dependence, unspecified, uncomplicated; Z90.49 Acquired absence of other specified parts of digestive tract; Z90.710 Acquired absence of both cervix and uterus; Z79.899 Other long term (current) drug therapy; Z88.1 Allergy status to other antibiotic agents; Z91.041 Radiographic dye allergy status; Z88.5 Allergy status to narcotic agent; Z53.8 Procedure and treatment not carried out for other reasons; Z53.20 Procedure and treatment not carried out because of patient's decision for unspecified reasons
CPT/HCPCS: 99284; 96374; 96361; 36415; 93005; 83880; 80053; 82150; 83690; 83735; 84484; 85025; 85610; 85730; 71045; 74018; 74176; J2270

== ENCOUNTER 2018-05-28 08:33 | Day surgery (SDC) | payer OTHER ==
[2018-05-24 14:48] VITALS: BMI 19.6
[2018-05-28 09:34] VITALS: RESP 16; TEMP 98.6
[2018-05-28] MEDS ORDERED: LIDOCAINE 1% INJ 10MG/ML (20 ML MDV) ONE (10:02)
[2018-05-28] MEDS ORDERED: PROPOFOL 10 MG/ML 20 ML VIAL IV ONE (10:02)
--- NOTE | 2018-05-28 10:38 | P.PCN ---
Date of Procedure: 05/28/18 Procedure(s) Performed: Procedure: Esophagogastroduodenoscopy and biopsy. Preoperative diagnosis: History of epigastric pain. Postoperative diagnosis: 1. Sliding hiatal hernia with short Betancur's esophagus but no obvious esophagitis or strictures. 2. Mild antral gastritis. 3. Multiple biopsies obtained from the duodenum, antrum, esophagus including separate biopsies from the Betancur's segment. Preparation and sedation: Was provided by anesthesia. Brief clinical history: The patient is a 58-year-old female who is scheduled for this evaluation because of an episode of epigastric pain that she experienced last month for which she went to the emergency room. The patient had prior cholecystectomy. CT of the abdomen without contrast was not particularly revealing. The patient was treated for gastritis and discharged and is now scheduled for this evaluation to assess for peptic ulcer disease or other pathology. Procedure: With the patient on her left lateral decubitus position and after informed consent and adequate sedation, I passed the Olympus-GIF H190 video upper endoscope through the cricopharyngeus down the esophagus. GE junction was irregular and started around 38 cm from the incisors and there was a short segment of Betancur's esophagus and a small hiatal hernia starting at 40 cm but no obvious esophagitis or strictures. The endoscope was then passed into the stomach which was insufflated with air and inspected in detail including the retroflex view in the cardia. There was some mottling and erythema in the antrum but no ulcers or erosions. Pyloric channel, duodenal bulb, post bulbar area and descending duodenum appeared within normal limits. I obtained biopsies from the duodenum, antrum and esophagus including separate biopsies from the Betancur's segment then the endoscope was withdrawn. The patient tolerated the procedure well. Plan: The patient was reassured. Will await biopsy results. She will follow-up with you as planned and I recommended repeat exam in 2-3 years based on the biopsy results.
[2018-05-28 10:48] VITALS: BP 144/82; PULSE 93
== END 2018-05-28 11:07 | disposition home or self-care (01) ==
LOC: ORWHC2ENDO 08:33
DX: K22.70 Barrett's esophagus without dysplasia (principal); K44.9 Diaphragmatic hernia without obstruction or gangrene; K29.50 Unspecified chronic gastritis without bleeding; Z90.49 Acquired absence of other specified parts of digestive tract; B96.81 Helicobacter pylori [H. pylori] as the cause of diseases classified elsewhere; Z91.041 Radiographic dye allergy status; I10 Essential (primary) hypertension; M19.90 Unspecified osteoarthritis, unspecified site; F17.210 Nicotine dependence, cigarettes, uncomplicated; G35 Multiple sclerosis; Z79.82 Long term (current) use of aspirin; Z88.8 Allergy status to other drugs, medicaments and biological substances; Z87.442 Personal history of urinary calculi; Z79.899 Other long term (current) drug therapy
CPT/HCPCS: 88305; 88342; 43239; J2001; J2704

== ENCOUNTER → 2018-06-13 | Outpatient (CLI) | payer OTHER ==
--- NOTE | 2018-06-13 12:44 | US ---
EXAMINATION TYPE: US st tissue head/neck DATE OF EXAM: 06/13/2018 COMPARISON: NONE CLINICAL HISTORY: R22.1 Localized swelling, mass and lump, neck. Pt states palpable lump midline post erior neck x many years, has recently been giving patient pain Midline, posterior neck at area of pt's palpable shows a superficial, calcified lesion= 1.2 x 0.5 x 0.6 cm IMPRESSION: Nonspecific superficial calcified lesion at the site of clinical concern. Consider CT of the neck is felt to be indicated.
== END ==
LOC: RADUSWWP 12:06
PROVIDERS: ATTEND Psychiatry & Neurology Neurology
DX: R22.1 Localized swelling, mass and lump, neck (principal)
CPT/HCPCS: 76536

== ENCOUNTER → 2019-03-04 | Outpatient (CLI) | payer OTHER | END | disposition home or self-care (01) | LOC: LABWHC1 15:53 | PROVIDERS: ATTEND Family Medicine | DX: R50.9 Fever, unspecified (principal); R09.81 Nasal congestion | CPT/HCPCS: 87502 ==

== ENCOUNTER → 2019-04-01 | Outpatient (CLI) | payer OTHER ==
[2019-04-01 16:52] LABS: Basophils # (A) 0.2 k/uL (0-0.2); Basophils % (A) 3 %; Eosinophils # (A) 0.2 k/uL (0-0.7); Eosinophils % (A) 2 %; HCT 42.9 % (34.0-46.0); HGB 13.9 gm/dL (11.4-16.0); Lymphocytes # (A) 2.1 k/uL (1.0-4.8); Lymphocytes % (A) 27 %; MCH 30.2 pg (25.0-35.0); MCHC 32.3 g/dL (31.0-37.0); MCV 93.3 fL (80.0-100.0); Mean Platelet Volume 7.5; Monocytes # (A) 0.4 k/uL (0-1.0); Monocytes % (A) 6 %; Neutrophils # (A) 4.6 k/uL (1.3-7.7); Neutrophils % (A) 61 %; Platelet Count 295 k/uL (150-450); RDW 11.8 % (11.5-15.5); WBC 7.6 k/uL (3.8-10.6)
[2019-04-02 00:01] LABS: African American GFR (CKD) 109.9 (60.0-200.0); Albumin 4.9 g/dL (3.80-4.90); Albumin/Globulin Ratio 3.06 (1.60-3.17); Anion Gap 9.3 mmol/L (4.00-12.00); BUN/Creat Ratio 15.71 Ratio (12.00-20.00); Calcium 9.6 mg/dL (8.7-10.3); Carbon Dioxide 27.7 mmol/L (21.6-31.8); Globulin 1.6 g/dL (1.6-3.3); Non-African American GFR(CKD) 94.8 (60.0-200.0); Potassium 4.1 mmol/L (3.5-5.5); Total Bilirubin 0.3 mg/dL (0.2-1.2); Total Protein 6.5 g/dL (6.2-8.2)
== END | disposition home or self-care (01) ==
LOC: LABWHC1 15:10
PROVIDERS: ATTEND Nurse Practitioner Acute Care
DX: E55.9 Vitamin D deficiency, unspecified (principal); R53.83 Other fatigue
CPT/HCPCS: 36415; 80053; 82306; 82607; 84207; 85025

== ENCOUNTER → 2019-09-09 | Outpatient (CLI) | payer OTHER ==
[2019-09-13 19:38] LABS: Metanephrine, Free 73 pg/mL (< OR = 57); Normetanephrine, Free 57 pg/mL (< OR = 148); Total, Free (MN + NMN) 130 pg/mL (< OR = 205)
== END | disposition home or self-care (01) ==
LOC: LABWHC1 14:20
PROVIDERS: ATTEND Nurse Practitioner Adult Health
DX: I10 Essential (primary) hypertension (principal)
CPT/HCPCS: 36415; 82533; 83835

== ENCOUNTER → 2019-10-30 | Outpatient (CLI) | payer OTHER ==
--- NOTE | 2019-11-03 08:30 | MM ---
Reason for exam: screening (asymptomatic). Last mammogram was performed 1 year and 1 month ago. History: Patient is postmenopausal. Family history of breast cancer in mother, breast cancer in maternal grandmother, breast cancer in maternal aunt, and breast cancer in maternal cousin. Lumpectomy of the left breast. Took estrogen for 20 years. Physical Findings: A clinical breast exam by your physician is recommended on an annual basis and results should be correlated with mammographic findings. MG Screening Mammo w CAD Bilateral CC and MLO view(s) were taken. Prior study comparison: September 17, 2018, bilateral MG screening mammo w CAD. January 04, 2017, right breast MG work up mamm w CAD RT. The breast tissue is heterogeneously dense. This may lower the sensitivity of mammography. No significant changes when compared with prior studies. ASSESSMENT: Negative, BI-RAD 1 RECOMMENDATION: Routine screening mammogram of both breasts in 1 year.
== END | disposition home or self-care (01) ==
LOC: RADMAMWWP 15:15
PROVIDERS: ATTEND Family Medicine
DX: Z12.31 Encounter for screening mammogram for malignant neoplasm of breast (principal)
CPT/HCPCS: 77067

== ENCOUNTER → 2020-08-26 | Outpatient (CLI) | payer MEDICARE, OTHER ==
--- NOTE | 2020-09-01 10:44 | MM ---
Reason for exam: screening (asymptomatic). Last mammogram was performed 10 months ago. History: Patient is postmenopausal. Family history of breast cancer in mother, breast cancer in maternal grandmother, breast cancer in maternal aunt, and breast cancer in maternal cousin at age 55. Lumpectomy of the left breast. Took hormonal contraceptives for 4 years. Took estrogen for 20 years. Physical Findings: A clinical breast exam by your physician is recommended on an annual basis and results should be correlated with mammographic findings. MG Screening Mammo w CAD Bilateral CC and MLO view(s) were taken. Prior study comparison: October 30, 2019, bilateral MG screening mammo w CAD. September 17, 2018, bilateral MG screening mammo w CAD. No significant changes when compared with prior studies. ASSESSMENT: Benign, BI-RAD 2 RECOMMENDATION: Routine screening mammogram of both breasts in 1 year.
== END | disposition home or self-care (01) ==
LOC: RADMAMWWP 12:36
PROVIDERS: ATTEND Family Medicine
DX: Z12.31 Encounter for screening mammogram for malignant neoplasm of breast (principal); Z98.890 Other specified postprocedural states; Z80.3 Family history of malignant neoplasm of breast
CPT/HCPCS: 77067

== ENCOUNTER 2021-01-14 10:56 | Day surgery (SDC) | payer MEDICARE, OTHER ==
[2021-01-12 17:54] VITALS: BMI 22.4
[2021-01-14 11:22] VITALS: TEMP 97.2
[2021-01-14] MEDS ORDERED: LIDOCAINE 1% (10MG/ML) FOR IV START INTRADERMA ONE (11:48)
[2021-01-14] MEDS ORDERED: MIDAZOLAM 2 MG/2 ML VIAL IV ONE ×2 (11:50→12:19)
--- NOTE | 2021-01-14 12:34 | P.PCN ---
Date of Procedure: 01/14/21 Procedure(s) Performed: BRIEF HISTORY: Patient is a 60-year-old, pleasant, white female scheduled for an upper endoscopy as a part of evaluation of severe GERD and epigastric pain for the last several years duration. Her last EGD was in 2 years ago and was noted to have short segment Betancur's esophagus. He scheduled for a surveillance upper endoscopy today.. PROCEDURE PERFORMED: Esophagogastroduodenoscopy with biopsy. PREOPERATIVE DIAGNOSIS: Epigastric pain and GERD. IV sedation per anesthesia. PROCEDURE: After informed consent was obtained, the patient was brought into the endoscopy unit. IV sedation was administered by Anesthesia under continuous monitoring. Initially the Olympus GIF-140 video endoscope was inserted into the mouth. Esophagus intubated without any difficulty. It was gradually advanced into the stomach and duodenum and carefully examined. The bulb and the second part of the duodenum appeared normal. The scope at this time was withdrawn to the stomach, adequately insufflated with air, and upon careful examination, mucosa of the antrum had diffuse erythema of the antrum which was biopsied., body, cardia and the fundus appeared normal. The scope was then withdrawn into the esophagus. The GE junction was located at 40 cm from the incisors. Small sliding Hiatal hernia noted. There was a 2 mm tongue of Betancur's appearing mucosa just proximal to the GE junction which was biopsied. The rest of the esophagus appeared normal. There were no erosions or ulcerations seen and the patient tolerated the procedure well. IMPRESSION: 1. Short segment Betancur's esophagus status post biopsy. 2. Small hiatal hernia. 3. Mild antral gastritis RECOMMENDATIONS: The findings of this examination were discussed with the patient is a family. She was advised to follow with the biopsy results. If the biopsy confirms the presence of Betancur's esophagus he can have a repeat upper endoscopy in 3 years. In the meantime she was advised to increase omeprazole to 20 mg twice daily and follow antireflux measures..
[2021-01-14 12:42] VITALS: RESP 16
[2021-01-14 13:19] VITALS: BP 131/81; PULSE 84
== END 2021-01-14 13:49 | disposition home or self-care (01) ==
LOC: ORWHC2ENDO 10:56
PROVIDERS: ATTEND Internal Medicine Gastroenterology
DX: K22.70 Barrett's esophagus without dysplasia (principal); K29.50 Unspecified chronic gastritis without bleeding; K21.9 Gastro-esophageal reflux disease without esophagitis; I10 Essential (primary) hypertension; E78.5 Hyperlipidemia, unspecified; F17.200 Nicotine dependence, unspecified, uncomplicated; F43.10 Post-traumatic stress disorder, unspecified; F41.9 Anxiety disorder, unspecified; Z97.2 Presence of dental prosthetic device (complete) (partial); Z90.49 Acquired absence of other specified parts of digestive tract; Z98.890 Other specified postprocedural states; Z79.891 Long term (current) use of opiate analgesic; Z79.1 Long term (current) use of non-steroidal anti-inflammatories (NSAID); Z79.899 Other long term (current) drug therapy; Z88.1 Allergy status to other antibiotic agents; Z88.5 Allergy status to narcotic agent
CPT/HCPCS: 88305; 43239; J2250

== ENCOUNTER → 2021-08-29 | Outpatient (CLI) | payer MEDICARE, OTHER ==
--- NOTE | 2021-08-31 06:51 | MM ---
Reason for Exam: Screening (asymptomatic). Last screening mammogram was performed 12 month(s) ago. Patient History: Menarche at age 16. First Full-Term at age 20. Left ovary removed at age 25. Hysterectomy at age 25. Postmenopausal. Patient used Estrogen for 20 years. Patient used Hormonal Contraceptives for 4 years. Lumpectomy on the Left side. Maternal grandmother had breast cancer. Maternal cousin had breast cancer, age 55. Maternal aunt had breast cancer. Mother had breast cancer. Risk Values: Stephanie 5 year model risk: 2.6%. NCI Lifetime model risk: 12.1%. Prior Study Comparison: 09/17/2018 Bilateral Screening Mammogram, [facility]. 10/30/2019 Bilateral Screening Mammogram, [facility]. 08/26/2020 Bilateral Screening Mammogram, [facility]. Tissue Density: The breast tissue is heterogeneously dense. This may lower the sensitivity of mammography. Findings: Analyzed By CAD. There is a single benign-appearing round calcification in the right breast. There is no suspicious group of microcalcifications or new suspicious mass in either breast. Overall Assessment: Benign, BI-RAD 2 Management: Screening Mammogram of both breasts in 1 year. A clinical breast exam by your physician is recommended on an annual basis and results should be correlated with mammographic findings. Some advise annual bilateral breast ultrasound surveillance in patient's with background dense tissue. Electronically signed and approved by: Reyes Zhang M.D.
== END | disposition home or self-care (01) ==
LOC: RADMAMWWP 10:20
PROVIDERS: ATTEND Family Medicine
DX: Z12.31 Encounter for screening mammogram for malignant neoplasm of breast (principal)
CPT/HCPCS: 77067

== ENCOUNTER → 2021-09-23 | Outpatient (CLI) | payer MEDICARE, OTHER ==
--- NOTE | 2021-09-23 08:14 | USB ---
Reason for Exam: Additional evaluation requested from prior study. Patient History: Menarche at age 16. First Full-Term at age 20. Left ovary removed at age 25. Hysterectomy at age 25. Postmenopausal. Patient used Estrogen for 20 years. Patient used Hormonal Contraceptives for 4 years. Lumpectomy on the Left side. Maternal grandmother had breast cancer. Maternal cousin had breast cancer, age 55. Maternal aunt had breast cancer. Mother had breast cancer. Risk Values: Stephanie 5 year model risk: 2.6%. NCI Lifetime model risk: 12.1%. Technique: Method: Whole Breast Handheld. Patient Position: Supine. Prior Study Comparison: 10/30/2019 Bilateral Screening Mammogram, [facility]. 08/26/2020 Bilateral Screening Mammogram, [facility]. 08/29/2021 Bilateral MG screening mammo w CAD, [facility]. Findings: The whole breast of both breasts was scanned. Bilateral breast ultrasound performed. No abnormality seen.No solid or cystic masses are identified. Whole bilateral breast ultrasound including evaluation of subareolar and axillary regions was performed. Overall Assessment: Negative, BI-RAD 1 Management: Screening Mammogram of both breasts in 1 year. Return to annual follow-up. Electronically signed and approved by: Reyes Zhang M.D.
== END | disposition home or self-care (01) ==
LOC: RADUSWWP 07:29
PROVIDERS: ATTEND Family Medicine
DX: R92.2 Inconclusive mammogram (principal)

== ENCOUNTER → 2021-10-12 | Outpatient (CLI) | payer MEDICARE, OTHER ==
[2021-10-12 22:13] LABS: ALT 27 U/L (8-44); AST 22 U/L (13-35); Chol/HDL Ratio 3.27 Ratio; LDL Cholesterol,Calculated 63.3 mg/dL (0.0-131.0); VLDL Calculation 19.98 mg/dL (5.00-40.00)
== END | disposition home or self-care (01) ==
LOC: LABWHC1 11:58
PROVIDERS: ATTEND Internal Medicine Interventional Cardiology
DX: E78.00 Pure hypercholesterolemia, unspecified (principal)
CPT/HCPCS: 36415; 80061; 84450; 84460